=== PATIENT | male | born 2005 | race Caucasian/White ===

== ENCOUNTER 2025-02-21 11:30 | Emergency (ER) | payer OTHER, SELFPAY ==
[2025-02-21 12:00] VITALS: BP 133/83; PULSE 83; RESP 16; TEMP 36.6; O2SAT 100; BMI 31.3
--- NOTE | 2025-02-21 12:02 | ED_ITS ---
HPI - General Adult General Chief complaint: Skin/Abscess/Foreign Body Stated complaint: cyst Time Seen by Provider: 02/21/25 21:04 Source: patient Mode of arrival: ambulatory Limitations: no limitations History of Present Illness ED Provider: JAYLON MELGAR narrative: 20 yo male with no PMH other than prior pilonidal cyst at this time has had cyst x 1 week with some drainage and redness/swelling. No other symptoms no fevers, no n/v. He has not taken any medications for it yet. He has no hx of DM or MRSA. MD complaint: pilonidal cyst Onset (ago): week(s) (1) Location: back Radiation: non-radiation Severity: moderate Quality: aching Pain Consistency: constant Relieving factors: none Exacerbating factors: movement Associated symptoms: denies other symptoms Treatments prior to arrival: none Related Data Previous Rx's ?Medication ?Instructions ?Recorded amoxicillin 875 mg-potassium 1 tab PO BID #14 tabs 02/21/25 clavulanate 125 mg tablet doxycycline hyclate 100 mg capsule 100 mg PO BID 7 days #14 caps 02/21/25 ibuprofen 600 mg tablet 600 mg PO Q6H PRN pain #30 tabs 02/21/25 ondansetron 4 mg disintegrating 4 mg PO Q8H PRN nausea and 02/21/25 tablet vomiting #20 tabs Allergies Allergy/AdvReac Type Severity Reaction Status Date / Time No Known Allergies Allergy Verified 02/21/25 12:03 Review of Systems Review of Systems: Constitutional : No Fever, No Chills ENT/Mouth : No sore throat, No Rhinorrhea Eyes: No Eye Pain, No Swelling, No Redness Cardiovascular : No Chest Pain, No SOB Respiratory : No Cough, No Sputum Gastrointestinal : No Nausea, No Vomiting, No Diarrhea, No abdominal Pain Genitourinary : No Dysuria, No Hematuria Musculoskeletal : No joint pain, No Myalgias, No Joint Swelling Skin : pos Skin Lesions, positive skin rash Neuro : No Weakness, No Numbness, No Headache Psych : No Anxiety, No Depression Heme/Lymph: No Bruising, No Bleeding,No Lymphadenopathy Endocrine : No Polyuria, No Polydipsia All other systems reviewed and are negative PMFSH Past Medical History Attestation statement: The following information was validated with the patient. Source: old records reviewed Medical History (Updated 02/21/25 @ 22:47 by Adriane Mike DO) Pilonidal cyst Social History Social History (Updated 02/21/25 @ 22:47 by Adriane Mike DO) Patient Tobacco Use Status: Never used Tobacco Physical Exam ED Vital Signs: Vital Signs - 24 hr 02/21/25 12:00 02/21/25 19:23 02/21/25 21:35 Temperature 97.8 F 98.6 F 98.6 F Pulse Rate 83 98 98 Respiratory Rate 16 18 18 Blood Pressure 133/83 143/84 H 143/84 H Pulse Oximetry 100 98 98 Oxygen Delivery Method Room Air Room Air Room Air BMI result Body Mass Index 31.3 Appearance: Alert. Oriented X3. No acute distress. Eyes: Pupils equal, round and reactive to light. ENT: Pharynx normal. Neck: Normal inspection. Neck supple. CVS: Normal heart rate and rhythm. Pulses normal. Respiratory: No respiratory distress. Breath sounds normal. Abdomen: Soft and nontender. Buttock: up at the gluteal cleft is a golf ball sized pilonidal cyst with erythema and mild drainage yellow brown Skin: Skin warm and dry. Normal skin color. Normal skin turgor. Extremities: No lower extremity edema. No calf ttp Neuro: Oriented X 3. No motor deficit. No sensory deficit. CN2-12 intact Course Course Course Narrative: This is a rapid medical exam performed by Mona Jasso PA-C. 20-year-old male presents with swelling at the base of his spine x1 week. Patient has a pilonidal cyst. The patient is stable and can return to the waiting room pending his full medical assessment. There was no indication for labs or imaging. Medications Administered Discontinued Medications Generic Name Dose Route Start Last Admin Trade Name Freq PRN Reason Stop Dose Admin Amoxicillin/Clavulanate Potassium 875 mg 02/21/25 21:23 02/21/25 21:32 Amoxicillin/Potassium Clav 875 Mg Tablet PO 02/21/25 21:24 875 mg ONCE ONE Administration Doxycycline Monohydrate 100 mg 02/21/25 21:23 02/21/25 21:32 Doxycycline Monohydrate 100 Mg Capsule PO 02/21/25 21:24 100 mg ONCE ONE Administration Lidocaine HCl 5 ml 02/21/25 21:06 02/21/25 21:18 Lidocaine Hcl 1 % Mpf 5 Ml Vial SUBCUT 02/21/25 21:07 5 ml ONCE ONE Administration Procedures Abscess I/D Site: other (pilonidal ) Local Anesthetic: lidocaine 1% Amount of anesthesia used (mL): 3 Technique: needle aspiration Amount of fluid expressed (mL): 30 Sent for culture/gram staining?: No Irrigation: Yes Packing used?: none Medical Decision Making Medical Decision Making MDM Narrative: 20 yo male with no PMH of DM/MRSA here with c/o pilonidal cyst but no systemic symptoms it is already draining so I was able to clean it and aspirate 30cc with continued drainage that was going prior to my eval. Will start on dual abx coverage and instruct good hygiene and follow up. Differential Diagnosis Differential Diagnoses: The differential diagnosis associated with the presentation includes cyst, abscess, cellulitis Admission/Observation Consideration of admission/observation: Escalation of care including admission/observation considered no systemic symptoms stable for DC Independent Historian Clinical information obtained from an independent historian. History obtained from or confirmed by: Parent External Record Review External record reviewed: Outpatient record Prescription Management I considered prescription management with: Pain Medication and Antibiotic Discharge Plan Discharge Clinical Impression: Infected pilonidal cyst Patient Disposition: Home, Self-Care Instructions: Pilonidal Cyst (ED), Abscess (ED) Additional Instructions: return for worsening symptoms increased pain, drainage, fevers, spreading of redness or any other concerns On amoxicillin-clavulanate, softer bowel movements are to be expected. Call your provider if you move your bowels more than 4 times a day, your bowel movements are almost all liquid, or you get a rash.? On doxycycline, do not take pills immediately before going to bed and swallow pills with plenty of water. Avoid direct sunlight, iron, antacids, and Pepto Bismol. Call your provider if you develop new ringing in your ears, new problems hearing, dizziness, difficulty swallowing, rash, abdominal discomfort, nausea, or diarrhea.? Prescriptions: New doxycycline hyclate 100 mg capsule 100 mg PO BID 7 Days Qty: 14 0RF ibuprofen 600 mg tablet 600 mg PO Q6H PRN (Reason: pain) Qty: 30 0RF ondansetron 4 mg tablet,disintegrating 4 mg PO Q8H PRN (Reason: nausea and vomiting) Qty: 20 0RF amoxicillin-pot clavulanate 875-125 mg tablet 1 tab PO BID Qty: 14 0RF Stand Alone Forms: Work/School Release Interventions: ED Discharge Assessment Last Done: 02/21/25 21:35 Discharge Date/Time: 02/21/25 21:36 Print Language: Citizen Of [place]
[2025-02-21 19:23] VITALS: BP 143/84; PULSE 98; RESP 18; TEMP 37; O2SAT 98
[2025-02-21] MEDS: Lidocaine HCl 1 % MPF 5 ML VIAL SUBCUT (21:18)
[2025-02-21] MEDS: Doxycycline Monohydrate 100 MG CAPSULE PO (21:32)
[2025-02-21] MEDS: Amoxicillin/Potassium Clav 875 MG TABLET PO (21:32)
[2025-02-21 21:35] VITALS: BP 143/84; PULSE 98; RESP 18; TEMP 37; O2SAT 98
== END 2025-02-21 21:36 | disposition home or self-care (01) ==
PROVIDERS: Emergency Provider Emergency Medicine
DX: L05.01 Pilonidal cyst with abscess (principal)
CPT/HCPCS: 10080; 99283; 99284; J2003